=== PATIENT | female | born 1955 | race Caucasian/White ===

== ENCOUNTER 2022-02-04 07:32 | Day surgery (SDC) | payer MEDICAID ==
[2022-02-01 16:17] LABS: BASOPHILS # (AUTO) 0.1 X10'3 (0-0.2); BASOPHILS % (AUTO) 0.7 % (0-1); EOSINOPHILS # (AUTO) 0.5 X10'3 (0-0.9); EOSINOPHILS % (AUTO) 6.4 % (0-6); LYMPHOCYTES # (AUTO) 2.9 X10'3 (1.1-4.8); LYMPHOCYTES % (AUTO) 38.1 % (21-51); MEAN CORPUSCULAR HEMOGLOBIN 31.8 PG (27.0-31.0); MEAN CORPUSCULAR VOLUME 93.5 FL (78-98); MEAN PLATELET VOLUME 7.4 FL (7.4-10.4); MONOCYTES # (AUTO) 0.6 X10'3 (0-0.9); MONOCYTES % (AUTO) 7.2 % (2-12); NEUTROPHILS # (AUTO) 3.6 X10'3 (1.8-7.7); NEUTROPHILS % (AUTO) 47.6 % (42-75); PRE OP HEMATOCRIT 42.7 % (35.0-45.0); PRE OP HEMOGLOBIN 14.5 g/dL (12.0-16.0); PRE OP PLATELET COUNT 294 X10'3 (140-440); RED BLOOD COUNT 4.57 X10'6 (4.20-5.60); RED CELL DISTRIBUTION WIDTH 13.2 % (11.5-14.5)
[2022-02-01 16:27] LABS: ALBUMIN 3.7 G/DL (3.4-5.0); ALBUMIN/GLOBULIN RATIO 1.1 (1.1-1.5); ALKALINE PHOSPHATASE 91 IU/L (46-116); BLOOD UREA NITROGEN 10 MG/DL (7-18); BUN/CREATININE RATIO 12.2 (6.6-38.0); CALCIUM 9.2 MG/DL (8.5-10.1); CHLORIDE 105 MMOL/L (99-107); CREATININE 0.82 MG/DL (0.40-0.90); PRE OP ALT 23 U/L (30-65); PRE OP ANION GAP 4 (8-16); PRE OP AST 18 U/L (10-37); PRE OP BILIRUB, TOTAL 0.3 MG/DL (0.0-1.0); PRE OP GLUCOSE 90 MG/DL (70-104); PRE OP POTASSIUM 4.2 MMOL/L (3.4-5.1); PRE OP SODIUM 139 MMOL/L (135-145); TOTAL CARBON DIOXIDE 29.9 MMOL/L (24-32); TOTAL PROTEIN 7.2 G/DL (6.4-8.2); eGFR 70 ML/MIN
[2022-02-04] VITALS (9 sets, daily range): BP systolic 139–157; BP diastolic 60–77
[~2022-02-04] VITALS: Ht 162.6 cm; Wt 66.0 kg
[~2022-02-04 07:32] MED LIST: ALBU90AE2; ATOR40TA72 PO; BUPIVAcaine/PF 2.5mg/ml (0.25%) 10ml vial ONE; FLUT1BLS12 PO; LEVO150T8 PO; LEVO175T7 PO; LISI20TA28 PO; ceFAZolin inj. 2,000 MG in dextrose 5%-water 100 ML IV ONE; famotidine 20mg tablet PO ONE; ringers solution, lacted 1,000 ML IV SCH
[2022-02-04] MEDS ORDERED: LIDOcaine 1% 30ml preserv. free vial ONE (07:38)
[2022-02-04] MEDS ORDERED: ceFAZolin/D5W- 1GM premix 50 ML IV ONE (07:40)
[2022-02-04] MEDS ORDERED: FLUT1BLS12 PO (08:18)
[2022-02-04] MEDS ORDERED: ketorolac trometh. 30mg/ml inj. ONE (08:51)
[2022-02-04] MEDS ORDERED: fentaNYL/PF 50MCG/1 ML 2ML syringe ONE (08:51)
[2022-02-04] MEDS ORDERED: MIDAZolam 1 MG/ML 5ML VIAL ONE (08:51)
[2022-02-04] MEDS ORDERED: BUPIVAcaine/PF 2.5mg/ml (0.25%) 10ml vial ONE (09:09)
--- NOTE | 2022-02-04 09:47 | NUR ---
Received from OR via , accompanied by Anesthesiologist DR PLUMMER and report given by Anesthesiolgist. VSS. PATIENT ALERT. STATES NO PAIN. IV IN LEFT WRIST 20 G NO ISSUES. BANDAGE AND ANSHU WARP ON R ELBOW AND WRIST. Addendum: 02/04/22 at 1012 by Pilar Ventura RN Amended: Links added.
--- NOTE | 2022-02-04 10:47 | NUR ---
PATIENT MEETS DISCHARGE CRITERIA. VSS. IV DC'D WITH NO ISSUES. PATIENT STATES NO PAIN. DRESSING ON RIGHT ELBOW AND HAND WITH ANSHU BANDAGE,CDI. EDUCATED PATIENT ON DISCHARGE INSTRUCTIONS AND WHEELED HER TO HER BROTHER'S CAR Addendum: 02/04/22 at 1436 by Pilar Ventura RN Amended: Links added.
== END 2022-02-04 10:47 | disposition home or self-care (01) ==
LOC: PAS 07:32 → EDBD 11:15
PROVIDERS: ATTEND Orthopaedic Surgery Hand Surgery
DX: G56.21 Lesion of ulnar nerve, right upper limb (principal); M65.4 Radial styloid tenosynovitis [de Quervain]; F17.210 Nicotine dependence, cigarettes, uncomplicated; I10 Essential (primary) hypertension; M19.90 Unspecified osteoarthritis, unspecified site; Z79.899 Other long term (current) drug therapy; Z98.890 Other specified postprocedural states; Z98.51 Tubal ligation status; Z98.49 Cataract extraction status, unspecified eye; Z94.7 Corneal transplant status; Z88.6 Allergy status to analgesic agent
CPT/HCPCS: 25000; 36415; 64718; 80053; 85025; 93005; J1885; J2250; J3010; J3490; J7030; J7120; Z7506; Z7512; A4215; A6449; J0690; J7060